=== PATIENT | female | born 1960 | race Caucasian/White ===

== ENCOUNTER 2022-10-22 15:27 | Emergency (ER) | payer MEDICARE, OTHER ==
[~2022-10-22] VITALS: Ht 180.3 cm; Wt 113.4 kg
[~2022-10-22 15:27] MED LIST: APIX5TAB PO; ATOR20TA PO; BUDE10.22 IH; DEXL60CA3 PO; DIGO125T PO; DILT120T8 PO; DOCU-141 PO; HYDR25TA4 PO; METF-440 PO; OLAN15TA3 PO; PANT40TA49 PO; QUET200T PO; SERT25TA; TRAZ-182
--- NOTE | 2022-10-22 15:52 | NUR ---
Pt states "im going to [facility]"
[2022-10-22 15:53] VITALS: BP 155/76
== END 2022-10-22 15:58 | disposition home or self-care (01) ==
LOC: ER 15:45
DX: Z53.21 Procedure and treatment not carried out due to patient leaving prior to being seen by health care provider (principal)

== ENCOUNTER 2022-11-01 20:29 | Inpatient (IN) | payer MEDICARE, OTHER ==
[~2022-11-01] VITALS: Ht 170.2 cm; Wt 99.8 kg
--- NOTE | 2022-11-01 22:24 | NUR ---
Yue mullen in [facility] - 11/01/22 at 2224 by TRACY URINE COLLECTED AND SENT TO LAB
--- NOTE | 2022-11-01 22:24 | NUR ---
COVID SWAB DONE AND SENT TO LAB
[2022-11-01 23:37] LABS: BASOPHILS % (AUTO) 0.2 % (0.0-2.0); EOSINOPHILS % (AUTO) 1.8 % (0.0-6.0); HEMATOCRIT 37 % (33-45); LYMPHOCYTES # (AUTO) 3.3 K/uL (0.8-4.8); MEAN CORPUSCULAR HGB CONC 32 g/dl (31.0-36.0); MEAN CORPUSCULAR VOLUME 89 fL (82-100); MONOCYTES # (AUTO) 0.6 K/uL (0.1-1.30); MONOCYTES % (AUTO) 5.3 % (2.0-12.0); NEUTROPHILS # (AUTO) 6.8 K/uL (1.8-8.9); NEUTROPHILS % (AUTO) 62.7 % (43.0-81.0); PLATELET COUNT (AUTO) 281 K/uL (150-450); RED BLOOD CELL COUNT(AUTO) 4.17 MIL/uL (4.0-5.2); WHITE BLOOD COUNT (AUTO) 10.9 K/uL (4.3-11.0)
[2022-11-01 23:56] LABS: CALCIUM, SERUM 8.9 mg/dL (8.5-10.1); CARBON DIOXIDE 26 mmol/L (21-32); CHLORIDE 103 mmol/L (98-107); CREATININE 0.6 mg/dL (0.6-1.3); GLUCOSE 191 mg/dL (74-106); POTASSIUM 3.4 mmol/L (3.5-5.1); SODIUM SERUM 138 mmol/L (136-145); UREA NITROGEN, BLOOD 9 mg/dL (7-18)
[2022-11-02 00:07] LABS: ALANINE AMINOTRANSFERASE 24 U/L (12-78); ALBUMIN 3.5 g/dL (3.4-5.0); ALCOHOL, BLOOD < 3 mg/dL (0-0); ALKALINE PHOSPHATASE 126 U/L (46-116); ASPARTATE AMINOTRANSFERASE 12 U/L (15-37); BILIRUBIN,DIRECT 0.1 mg/dL (0.0-0.2); BILIRUBIN,TOTAL 0.3 mg/dL (0.2-1.0); TOTAL PROTEIN, SERUM 7.1 g/dL (6.4-8.2)
--- NOTE | 2022-11-02 00:55 | NUR ---
REPORT GIVEN TO RN
[2022-11-02 01:53] VITALS: BP 126/55
[2022-11-02] MEDS ORDERED: BLOOD SUGAR DIAGNOSTIC 1 EACH STRIP IN ONE (02:00)
[2022-11-02] MEDS ORDERED: TEMAZEPAM 7.5 MG CAPSULE PO PRN (02:00)
[2022-11-02] MEDS ORDERED: MAGNESIUM HYDROXIDE 30 ML UDC PO PRN (02:00)
[2022-11-02] MEDS ORDERED: MAG HYDROX/AL HYDROX/SIMETH 30 ML UDC PO PRN (02:00)
--- NOTE | 2022-11-02 02:30 | NUR ---
SUPERVISOR [employer]REWORKS ASSEMBLY NOTE - ADMITTED 62 Y/O FEMALE FROM [facility] ER TO GPS UNIT. PATIENT IS ON 5150 HOLD DUE TO DTS. PER 5150 HOLD, PATIENT'S MOTHER HAS CONSERVATORSHIP. PER MOTHER, CLIENT NEEDS TO BE HOSPITALIZED CLIENT IS MAKING SUICIDAL STATEMENTS AND IS ASKING MOTHER TO MAKE MORGUE FOR HER. ON EVALUATION, CLIENT PRESENTED WITH SEVERE ACTIVE AND ACUTE MOOD DISREGULATION. SHE WAS AGITATED AND STATED THAT SHE HAS NOT SLEPT IN SEVERAL DAYS. MOREOVER, SHE PRESENTED WITH POOR IMPULSE CONTROL, UNPREDICTABLE BEHAVIOR, POOR INSIGHT AND POOR JUDGEMENT. MOTHER HAS BEEN CALLING SEVERAL TIMES DURING THE LAST WEEKS MOTHER IS CONCERNED THAT CLIENT IS GOING TO HURT HERSELF. UPON FACE TO FACE ASSESSMENT, PATIENT IS A & O X 1-2, CONFUSED, DISORGANIZED, POOR IMPULSE CONTROL, EASILY ANXIOUS, RESTLESS, UNPREDICTABLE BEHAVIOR, UNCOOPERATIVE, LABILE, NEEDY. PATIENT DENIES SUICIDAL IDEATIONS AT THIS TIME AND STATED," I DON'T REMEMBER EXACTLY WHY I AM HERE." PATIENT IS AMBULATORY, STEADY GAIT. PAST MEDICAL HX DEPRESSION, HTN, DIABETES, BIPOLAR D/O, GERD, COPD AND SCHIZOAFFECTIVE DISORDER. PT. REFUSED SKIN ASSESSMENT X 3. ONLY ALLOWED FACE PICTURE TO BE TAKEN. PT. REFUSED TO SIGN ALL ADMISSION PAPERS AND REFUSED FLU/PNEUMOCOCCAL VACCINE. PATIENT IS UNABLE TO PROVIDE INFORMATION OF COVID VACCINE DUE TO CONFUSION. WILL ENDORSE TO AM RN TO FOLLOW UP WITH PT'S MOTHER IN AM VIA PHONE. DR. URIBE AND DR. LANTIGUA NOTIFIED ABOUT PT'S ADMISSION IN GPS UNIT. CONTINENT/BRP. PT'S RIGHTS HANDBOOK PROVIDED TO THE PATIENT. BS IS 253 MG/DL UPON ADMISSION. ORIENTED THE PT. TO THE UNIT AND STAFF. SNACK OFFERED AND TOLERATED WELL. SAFETY MEASURES IN PLACE. WILL CONTINUE TO MONITOR Q 15 MIN FOR SAFETY AND BEHAVIOR.
--- NOTE | 2022-11-02 04:46 | NUR ---
URINE SPECIMEN COLLECTED AND WILL BE SENT TO LAB.
--- NOTE | 2022-11-02 05:12 | NUR ---
DR. LANTIGUA NOTIFIED REGARDING NEW ADMISSION AND MEDICATIONS TO BE RECONCILED.
[2022-11-02] MEDS ORDERED: DEXTROSE 50%-WATER 50 ML DISP.SYRIN IV PRN (05:30)
--- NOTE | 2022-11-02 07:21 | NUR ---
CALLED PATIENT'S MOTHER ANN ZULUAGA AND LEFT A VOICEMAIL AT [phone] REGARDING PATIENT'S ADMISSION AT [facility] GPS UNIT.
[2022-11-02 08:00] VITALS: BP 125/59
[2022-11-02] MEDS ORDERED: HYDR-4076 PO (08:22)
[2022-11-02] MEDS ORDERED: METO50CA PO (08:22)
[2022-11-02] MEDS ORDERED: METO25TA4 PO (08:23)
[2022-11-02] MEDS: BLOOD SUGAR DIAGNOSTIC 1 EACH STRIP IN SCH ×4 (08:29→22:00)
[2022-11-02 08:41] LABS: BILIRUBIN,URINE NEGATIVE (NEGATIVE); COLOR,URINE YELLOW (YELLOW); LEUKOCYTE ESTERASE ,URINE NEGATIVE (NEGATIVE); NITRITE, URINE NEGATIVE (NEGATIVE); PROTEIN,URINE NEGATIVE (NEGATIVE); UGLUCOSE NEGATIVE (NEGATIVE); UROBILINOGEN,URINE 0.2 EU/dL (0.2)
--- NOTE | 2022-11-02 10:25 | NUR ---
ANYI Initial Discharge Note: Patient currently resides at home located at [address] [place] [address]. Pt stated that her mother Kenzie is her conservator ([phone]). SW will contact mother to confirm and gather collateral. ANYI will work with the pt, family, and MD to help coordinate appropriate discharge.
--- NOTE | 2022-11-02 10:26 | NUR ---
ANYI Clinical Note: Pt placed on a 5150 hold for danger to herself. Pt was brought in due to making suicidal statements and has not been sleeping or eating at home. Patient currently resides at home located at [address] [place] [address]. Pt stated that her mother Kenzie is her conservator ([phone]). SW will contact mother to confirm and gather collateral.
--- NOTE | 2022-11-02 10:26 | NUR ---
Treatment Plan: Pt refused to sign treatment plan and was tearful.
[2022-11-02] MEDS: DILTIAZEM HCL CD 120 MG PO SCH (11:08)
--- NOTE | 2022-11-02 11:08 | NUR ---
RN-NOTES NOTED PATIENT ANGRY,IRRITABLE,PACING ,DEMANDING WITH LOUD VOICE. REDIRECTED AND OFFERED ATIVAN BUT PATIENT REFUSED. STATED" I DON'T NEED ANY ATIVAN". EXPLAINED RISK AND BENEFITS BUT PATIENT STILL REFUSED.OFFERED X3.
--- NOTE | 2022-11-02 11:59 | NUR ---
RN-NOTES PATIENT REFUSED LAB DRAW DESPITE FEW ATTEMPTS BY THE LAB STAFF.
--- NOTE | 2022-11-02 12:15 | NUR ---
RN-NOTES PATIENT BS WAS 203MG/DL, PATIENT REFUSED 4 UNITS OF R INSULIN. MODEL MAKER PLASTER YANELIS NOTIFIED.
--- NOTE | 2022-11-02 12:25 | NUR ---
RN-NOTES PATIENT BS WAS 203MG/DL,REFUSED 4 UNITS OF R INSULIN DESPITE EXPLANATIONS RISK AND BENEFITS. STATED" I NEVER TAKE INSULIN IN MY LIFE ,I'M ON METFORMIN". OFFERED X3.
[2022-11-02] MEDS: hydrALAZINE HCL 25 MG TABLET PO SCH ×3 (13:46→18:41)
--- NOTE | 2022-11-02 14:02 | NUR ---
ANYI Family Contact: ANYI contacted patient's mother Kenzie ([phone]) to discuss treatment and discharge plan. She stated that she is the LPS conservator for pt. She stated her minister office would know information. Terrie [phone] and they will be able to send the documents. She reported that she is unable to care for pt at home and she will need placement. Pt's mother is elderly and she is in her 80's.
--- NOTE | 2022-11-02 14:04 | NUR ---
[employer] Worker Office: ANYI contacted pt's medical malpractice paralegal office and spoke with Terrie ([phone]) who stated that they have a minute order for pt and detain and treat that she can send. She reported that the mother Kenzie is the LPS conservator, however, she stated that she is elderly and it will be difficult for mother to sign. Terrie requested if pt's claim attorney can sign, ANYI consulted with Karishma Mcgee, director and she stated that unfortunately the conservator would need to sign. ANYI notified Terrie and left her a voicemail.
--- NOTE | 2022-11-02 14:34 | NUR ---
RN-NOTES PATIENT SCREAMING AND YELLING AT THE CULINARY SPECIALIST DEMANDING A TURKEY SANDWICH WHICH IS NOT POSSIBLE DUE TO HER VEGETARIAN DIET. CULINARY SPECIALIST DID EXPLAINED AND ENCOURAGED TO HAVE OTHER SANDWICH WITH NO MEAT BUT PATIENT GETS AGITATED AND YELLING WITH THREATENING VOICE. DR. URIBE NOTIFIED WITH THE BEHAVIOR. WITH T.O ORDER OF ATIVAN 1MG IM ONE AND ZYPREXA 10MG IM ONE. NOTED AND CARRIED OUT.
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
[2022-11-02] MEDS ORDERED: LORAZEPAM INJ 2 MG/ML VIAL IM ONE (15:00)
[2022-11-02] MEDS ORDERED: OLANZAPINE 10 MG VIAL IM ONE (15:00)
[2022-11-02 16:00] VITALS: BP 153/93
[2022-11-02] MEDS: APIXABAN 5 MG TABLET PO SCH ×2 (17:00→18:42)
[2022-11-02] MEDS: METFORMIN 500 MG TABLET PO SCH ×2 (17:00→18:41)
--- NOTE | 2022-11-02 17:26 | NUR ---
RN-NOTES ALL 1700 PM P.O MEDICATIONS WAS NOT GIVEN DUE TO PATIENT IS TOO SEDATED WITH BREATHING EVEN AND NONLABORED. NO ACUTE DISTRESS NOTED. Addendum: 11/02/22 at 1840 by KATARINA MACHUCA RN PATIENT WAS AWAKE AND TOOK ALL 1700 MEDICATIONS.
--- NOTE | 2022-11-02 18:30 | NUR ---
RN-NOTES SUPERVISOR ELECTRONICS ASSEMBLY VERIFIED WITH THE PATIENT'S MOTHER IF PATIENT IS VEGETARIAN,PER ANN ZULUAGA PATIENT CAN EAT EEGS AND MEAT BUT SMALL PORTION. SUPERVISOR ELECTRONICS ASSEMBLY DID CHANGE PATIENT'S DIET TO REGULAR CARDIAC DIET.
[2022-11-02 20:30] VITALS: BP 150/87
[2022-11-02] MEDS ORDERED: QUETIAPINE FUMARATE 100 MG TABLET PO SCH (22:00)
[2022-11-02] MEDS: ATORVASTATIN 10 MG TABLET PO SCH (22:13)
[2022-11-02] MEDS: ACETAMINOPHEN 325 MG TABLET PO PRN (22:16)
--- NOTE | 2022-11-02 23:08 | NUR ---
Blood sugar 156
[2022-11-02] MEDS: INSULIN REGULAR, HUMAN 100 UNIT/ML 3 ML VIAL SQ PRN (23:18)
[2022-11-02] MEDS: LORAZEPAM 0.5 MG TABLET PO PRN (23:44)
--- NOTE | 2022-11-03 07:15 | NUR ---
RN OPENING NOTE PATIENT ALERT, ORIENTED x 3, AWAKE, AMBULATORY, VERY WELL AWARE ABOUT HER MEDICATION, ASKING QUESTIONS. SAFETY MEASURES IMPLEMENTED, WILL CONTINUE TO MONITOR.
[2022-11-03] MEDS: PANTOPRAZOLE 40 MG TABLET.DR PO SCH (07:47)
[2022-11-03 08:00] VITALS: BP 139/79
--- NOTE | 2022-11-03 08:00 | NUR ---
PATIENTS BS LEVEL 192, PT REFUSED TO GET INSULIN. WILL MONITOR.
[2022-11-03] MEDS: BLOOD SUGAR DIAGNOSTIC 1 EACH STRIP IN SCH ×4 (08:05→21:58)
[2022-11-03] MEDS: DILTIAZEM HCL CD 120 MG PO SCH (09:51)
[2022-11-03] MEDS: METFORMIN 500 MG TABLET PO SCH ×2 (09:52→17:22)
[2022-11-03] MEDS: hydrALAZINE HCL 25 MG TABLET PO SCH ×3 (09:52→17:24)
[2022-11-03] MEDS: METOPROLOL SUCCINATE 25 MG TAB.SR.24H PO SCH (09:53)
[2022-11-03] MEDS: APIXABAN 5 MG TABLET PO SCH ×2 (09:55→17:25)
[2022-11-03 10:00] VITALS: BP 139/79
[2022-11-03] MEDS ORDERED: QUETIAPINE FUMARATE 25 MG TABLET PO SCH (12:00)
[2022-11-03] MEDS: DIGOXIN 0.125 MG TABLET PO SCH (12:29)
--- NOTE | 2022-11-03 12:55 | NUR ---
PT BS LEVEL 196, REFUSED INSULIN. WILL CONTINUE TO MONITOR.
[2022-11-03 16:00] VITALS: BP 150/57
--- NOTE | 2022-11-03 18:44 | NUR ---
RN CLOSING NOTE. PT IS IN ROOM, CALM, COOPERATIVE. ALL MEDS GIVEN, ALL NEEDS ATTENDED. WILL ENDORSE TO THE DIRECTOR INFORMATION SECURITY.
[2022-11-03] MEDS: ATORVASTATIN 10 MG TABLET PO SCH (21:36)
[2022-11-03 22:00] VITALS: BP 150/87
[2022-11-03] MEDS ORDERED: QUETIAPINE FUMARATE 100 MG TABLET PO SCH ×2 (22:00)
[2022-11-04] MEDS: LORAZEPAM 0.5 MG TABLET PO PRN (04:15)
--- NOTE | 2022-11-04 04:19 | NUR ---
RN NOTES; ATIVAN 0.5MG BARCODE WON'T SCAN,I DO IT MANUALLY,CHARGE NURSE ITZ WAS IN MY SIDE.
[2022-11-04] MEDS: BLOOD SUGAR DIAGNOSTIC 1 EACH STRIP IN SCH ×4 (07:30→21:30)
--- NOTE | 2022-11-04 07:34 | NUR ---
GPS/RN PT REFUSED ACCUCHECK OFFERED X3
[2022-11-04 08:00] VITALS: BP 111/75
[2022-11-04] MEDS: METFORMIN 500 MG TABLET PO SCH ×2 (08:48→17:50)
[2022-11-04] MEDS: PANTOPRAZOLE 40 MG TABLET.DR PO SCH (08:49)
[2022-11-04] MEDS: APIXABAN 5 MG TABLET PO SCH ×2 (08:49→17:50)
[2022-11-04] MEDS: hydrALAZINE HCL 25 MG TABLET PO SCH ×3 (08:50→17:50)
[2022-11-04] MEDS: DILTIAZEM HCL CD 120 MG PO SCH (08:50)
[2022-11-04] MEDS: METOPROLOL SUCCINATE 25 MG TAB.SR.24H PO SCH (09:00)
[2022-11-04 10:00] VITALS: BP 111/75
--- NOTE | 2022-11-04 10:54 | NUR ---
ANYI SNF Referral: [phone][facility] ANYI sent H & P, progress notes, and medication list.
--- NOTE | 2022-11-04 11:04 | NUR ---
LPS Conservatorship: ANYI and Karishma Mcgee, director reviewed patient's LPS conservatorship minute order document. It appears that the power 12 does not allow to detain and treat in the psych unit due to 7 & 8 gunderson not granted. Therefore, pt will remain 5150/5250. ANYI informed treatment team and Dr. Amato. Addendum: 11/04/22 at 1111 by ANYI BENSON ANYI placed it in the chart.
--- NOTE | 2022-11-04 13:00 | NUR ---
GPS/MARNIE ACCUCHECK WITH VR=640 NO INSULIN COVERAGE. PT SELECTIVE WITH MEDS. REFUSED HYDRALAZINE PO
[2022-11-04] MEDS: DIGOXIN 0.125 MG TABLET PO SCH (14:21)
[2022-11-04 16:00] VITALS: BP 136/66
[2022-11-04] MEDS: DOCUSATE SODIUM 100 MG CAPSULE PO PRN (17:50)
--- NOTE | 2022-11-04 19:30 | NUR ---
GPS RN NOTE, RECEIVED PATIENT AWAKE AND IN BED, NO S/S OR COMPLAINTS OF PAIN AT THIS TIME. PATIENT IS DISPLAYING NO S/S OF APPARENT DISTRESS AT THIS TIME. PATIENT BREATHING IS UNLABORED WITH EQUAL RISE AND FALL OF THE CHEST. PATIENT IS ALERT AND ORIENTED X 2 ON ROOM AIR WITH A SPO2 98%. PATIENT IS SELECTIVE WITH MEDICATIONS, MANIPULATIVE, HYPERVERBAL, ANXIOUS, PARANOID, AND COOPERATIVE. PATIENT DENIES SUICIDAL AND HOMICIDAL IDEATIONS AT THIS TIME. PATIENT ASSISTED WITH TURNING AND REPOSITIONING Q2HR AND PRN FOR COMFORT AND CIRCULATION. PATIENT HAS NO NEEDS AT THIS TIME. PATIENT EDUCATED ON THE USE OF THE CALL JUAREZ. PATIENT BED SIDE RAILS UP X 2 FOR SAFETY. PATIENT BED IS LOCKED AND LOW. WILL CONTINUE TO MONITOR THIS PATIENT Q15 MINUTES WITH THE HELP OF STAFF TO MAINTAIN SAFETY.
[2022-11-04 20:42] VITALS: BP 130/59
[2022-11-04] MEDS: ATORVASTATIN 10 MG TABLET PO SCH (21:25)
[2022-11-04] MEDS: QUETIAPINE FUMARATE 100 MG TABLET PO SCH (21:25)
--- NOTE | 2022-11-04 21:30 | NUR ---
GPS RN NOTE, PATIENT REFUSED TO HAVE A ACCU-CHECK PERFORMED. OFFERED THREE TIMES AND STILL PATIENT REFUSED STATING, " NO I DON'T WANT TO CHECK MY BLOOD SUGAR, I JUST WANT TO SLEEP ". EDUCATED PATIENT ON THE RISKS AND BENEFITS OF MAINTAINING BLOOD SUGAR. WILL CONTINUE TO MONITOR THIS PATIENT WITH THE HELP OF STAFF.
[2022-11-05 08:00] VITALS: BP 134/56
--- NOTE | 2022-11-05 08:10 | NUR ---
GPS/RN ACCUCHECK WITH WU=101. PT REFUSED INSULIN COVERAGE OFFERED X3
[2022-11-05] MEDS: BLOOD SUGAR DIAGNOSTIC 1 EACH STRIP IN SCH ×4 (08:13→22:00)
[2022-11-05] MEDS: METFORMIN 500 MG TABLET PO SCH ×2 (08:15→17:34)
[2022-11-05] MEDS: APIXABAN 5 MG TABLET PO SCH ×2 (08:16→17:34)
[2022-11-05] MEDS: PANTOPRAZOLE 40 MG TABLET.DR PO SCH (08:16)
[2022-11-05] MEDS: DILTIAZEM HCL CD 120 MG PO SCH (08:17)
[2022-11-05] MEDS: hydrALAZINE HCL 25 MG TABLET PO SCH ×3 (08:17→17:34)
[2022-11-05] MEDS: METOPROLOL SUCCINATE 25 MG TAB.SR.24H PO SCH (08:21)
--- NOTE | 2022-11-05 12:17 | NUR ---
GPS/RN ACCUCHECK WITH HP=058. PT REFUSED INSULIN COVERAGE OFFERED X3
[2022-11-05] MEDS: DIGOXIN 0.125 MG TABLET PO SCH (12:36)
[2022-11-05 16:00] VITALS: BP 114/52
--- NOTE | 2022-11-05 19:25 | NUR ---
GPS RN NOTES RECEIVED LAYING ON HER BED INSIDE THE ROOM,SLEEPING,AROUSABLE TO VERBAL STIMULI,PER REPORT,A/O X1-2,CONFUSED,UNCOOPERATIVE AT TIMES,DISORGANIZED,AMBULATE WITH STEADY GAIT,DEMANDING AT TIMES.WILL CONTINUE TO MONITOR BEHAVIOR AND MANAGE ACCORDINGLY.
[2022-11-05 20:00] VITALS: BP 128/61
[2022-11-05 20:39] VITALS: BP 128/61
[2022-11-05] MEDS: QUETIAPINE FUMARATE 100 MG TABLET PO SCH (21:28)
[2022-11-05] MEDS: ATORVASTATIN 10 MG TABLET PO SCH (21:28)
--- NOTE | 2022-11-05 21:45 | NUR ---
GPS RN NOTES REFUSED BLOOD SUGAR CHECK FOR 2200
[2022-11-05] MEDS: LORAZEPAM 0.5 MG TABLET PO PRN (23:24)
--- NOTE | 2022-11-05 23:24 | NUR ---
GPS RN NOTES FEELING ANXIOUS,ATIVAN 0.5MG PO GIVEN PER PATIENT REQUEST
[2022-11-06] MEDS: BLOOD SUGAR DIAGNOSTIC 1 EACH STRIP IN SCH ×3 (07:30→12:00)
[2022-11-06 08:00] VITALS: BP 142/65
--- NOTE | 2022-11-06 08:00 | NUR ---
GPS RN NOTE RECEIVED PATIENT SLEEPING IN BED, NO S/S OR COMPLAINTS OF PAIN AT THIS TIME. PATIENT IS DISPLAYING NO S/S OF APPARENT DISTRESS AT THIS TIME. PATIENT BREATHING IS UNLABORED WITH EQUAL RISE AND FALL OF THE CHEST. PATIENT IS ALERT AND ORIENTED X 2 ENDORSED ON ROOM AIR TOLERATING WELL. PATIENT BED SIDE RAILS UP X 2 FOR SAFETY. PATIENT BED IS LOCKED AND LOW. WILL CONTINUE TO MONITOR THIS PATIENT Q15 MINUTES WITH THE HELP OF STAFF TO MAINTAIN SAFETY. WILL MONITOR.
[2022-11-06] MEDS: PANTOPRAZOLE 40 MG TABLET.DR PO SCH (08:32)
[2022-11-06] MEDS: DOCUSATE SODIUM 100 MG CAPSULE PO PRN ×2 (08:42→09:35)
[2022-11-06] MEDS: METFORMIN 500 MG TABLET PO SCH ×2 (08:42→16:28)
[2022-11-06] MEDS: hydrALAZINE HCL 25 MG TABLET PO SCH ×3 (08:42→16:28)
[2022-11-06] MEDS: DILTIAZEM HCL CD 120 MG PO SCH (08:43)
[2022-11-06] MEDS: METOPROLOL SUCCINATE 25 MG TAB.SR.24H PO SCH ×2 (08:44→09:00)
[2022-11-06] MEDS: APIXABAN 5 MG TABLET PO SCH ×2 (09:00→16:29)
--- NOTE | 2022-11-06 10:10 | NUR ---
gps rn notes Patient refused to check her blood sugar, refused metoprolol and colace. Patient states, My blood pressure is okay, I will get my blood sugar test this afternoon. Explained risk, approached several times. will monitor.
[2022-11-06] MEDS: DIGOXIN 0.125 MG TABLET PO SCH (12:43)
--- NOTE | 2022-11-06 12:45 | NUR ---
GPS RN NOTE PATIENT REFUSED ACCU-CHECK .OFFERED THREE TIMES AND STILL PATIENT REFUSED STATING, " YOU ALREADY ASKED ME 100X I DON'T WANT YOU TO CHECK MY BLOOD SUGAR ". EDUCATED PATIENT ON THE RISKS AND BENEFITS OF MAINTAINING BLOOD SUGAR. NOTIFIED ALEXIS TOTH WITH ORDER TO DC ACCUCHECK. WILL MONITOR
[2022-11-06 16:00] VITALS: BP 132/57
--- NOTE | 2022-11-06 18:52 | NUR ---
GPS RN NOTE PATIENT AWAKE AND IN BED, NO S/S OR COMPLAINTS OF PAIN AT THIS TIME. PATIENT IS DISPLAYING NO S/S OF APPARENT DISTRESS AT THIS TIME. PATIENT BREATHING IS UNLABORED WITH EQUAL RISE AND FALL OF THE CHEST, MANIPULATIVE, HYPERVERBAL, ANXIOUS, PARANOID, AND COOPERATIVE. PATIENT DENIES SUICIDAL AND HOMICIDAL IDEATIONS AT THIS TIME. PATIENT KEPT ON WALKING IN THE HALLWAY, ASKING IRRELEVANT QUESTIONS. PATIENT HAS NO NEEDS AT THIS TIME. PATIENT EDUCATED ON THE USE OF THE CALL JUAREZ. PATIENT BED SIDE RAILS UP X 2 FOR SAFETY. PATIENT BED IS LOCKED AND LOW. WILL CONTINUE TO MONITOR THIS PATIENT Q15 MINUTES WITH THE HELP OF STAFF TO MAINTAIN SAFETY.
--- NOTE | 2022-11-06 20:00 | NUR ---
A/OX4, IRRITABLE, MANIPULATIVE, DISORGANIZED, GUARDED. MED COMPLIANT. WILL CONTINUE TO MONITOR FOR SAFETY AND BEHAVIOR.
[2022-11-06 20:25] VITALS: BP 120/52
--- NOTE | 2022-11-06 20:30 | NUR ---
PATIENT REFUSED WEEKLY SKIN ASSESSMENT. WILL CONTINUE TO MONITOR.
[2022-11-06] MEDS: LORAZEPAM 0.5 MG TABLET PO PRN (21:33)
[2022-11-06] MEDS: QUETIAPINE FUMARATE 100 MG TABLET PO SCH (21:34)
[2022-11-06] MEDS: ATORVASTATIN 10 MG TABLET PO SCH (21:34)
[2022-11-07 08:00] VITALS: BP 139/71
[2022-11-07] MEDS: PANTOPRAZOLE 40 MG TABLET.DR PO SCH (08:04)
[2022-11-07] MEDS: DILTIAZEM HCL CD 120 MG PO SCH (08:21)
[2022-11-07] MEDS: METFORMIN 500 MG TABLET PO SCH ×2 (08:22→16:51)
[2022-11-07] MEDS: hydrALAZINE HCL 25 MG TABLET PO SCH ×4 (08:22→17:27)
[2022-11-07] MEDS: METOPROLOL SUCCINATE 25 MG TAB.SR.24H PO SCH ×2 (08:22→09:00)
[2022-11-07] MEDS: APIXABAN 5 MG TABLET PO SCH ×2 (08:26→16:57)
--- NOTE | 2022-11-07 10:26 | NUR ---
Court Notification: SW contacted pt's mother Kenzie ([phone]) to notify of 0847 hearing.
--- NOTE | 2022-11-07 10:27 | NUR ---
Court Hearing: Patient's court hearing for 9660 was today and it was upheld for GD.
[2022-11-07] MEDS: DIGOXIN 0.125 MG TABLET PO SCH (13:41)
[2022-11-07 16:00] VITALS: BP 134/57
[2022-11-07] MEDS: ATORVASTATIN 10 MG TABLET PO SCH (21:03)
[2022-11-07] MEDS: QUETIAPINE FUMARATE 100 MG TABLET PO SCH (21:04)
[2022-11-07] MEDS: LORAZEPAM 0.5 MG TABLET PO PRN (23:20)
--- NOTE | 2022-11-07 23:24 | NUR ---
ANXIETY Patient feels anxious, request Ativan. Denies sob, in RA. Given PO Ativan.
--- NOTE | 2022-11-08 06:29 | NUR ---
END OF SHIFT REPORT Patient in bed, sleeping arouses easily. Hours of sleep 8. Facing hallway when awake, calm down with Ativan PO, denies SOB. Plan for continue inpatient [facility] hospitalization, Behavior management per Psychiatry. Will endorse to oncoming RN.
[2022-11-08 08:00] VITALS: BP 137/70
[2022-11-08] MEDS: PANTOPRAZOLE 40 MG TABLET.DR PO SCH (08:03)
[2022-11-08] MEDS: DILTIAZEM HCL CD 120 MG PO SCH (08:35)
[2022-11-08] MEDS: METFORMIN 500 MG TABLET PO SCH ×2 (08:36→17:06)
[2022-11-08] MEDS: hydrALAZINE HCL 25 MG TABLET PO SCH ×3 (08:36→17:07)
[2022-11-08] MEDS: METOPROLOL SUCCINATE 25 MG TAB.SR.24H PO SCH (08:36)
[2022-11-08] MEDS: APIXABAN 5 MG TABLET PO SCH ×2 (08:38→17:08)
--- NOTE | 2022-11-08 11:26 | NUR ---
ANYI Family Contact: SW contacted patient's mother Kenzie ([phone]) and discussed [facility] and mother was agreeable of this.
[2022-11-08] MEDS: DIGOXIN 0.125 MG TABLET PO SCH (12:20)
[2022-11-08] MEDS: LORAZEPAM 0.5 MG TABLET PO PRN (12:20)
[2022-11-08] MEDS ORDERED: OLANZAPINE 10 MG VIAL IM STA (14:48)
--- NOTE | 2022-11-08 14:56 | NUR ---
RN NOTES PATIENT'S BEHAVIOR IS UNUSUAL, PASSING THE [address] AND MALE PT'S ROOM. INFORMED DR URIBE. CHARGE NURSE BRYANNA INFORMED AND CHARGE NURSE RECEIVED THE ORDER: OLANZAPINE 10MG IM STAT ONE DOSSE ONLY. ORDERS NOTED AND CARRIED OUT. @7216 PT RECEIVED THE IM INJECTION OLANZAPINE 10MG. PT WAS INFORMED AND CALMLY PARTICIPATED.
[2022-11-08 16:28] VITALS: BP 144/76
--- NOTE | 2022-11-08 19:30 | NUR ---
RN NOTES RECEIVED PATIENT AWAKE IN BED. PATIENT IS A/O TIMES 3 . ABLE TO MAKE NEEDS KNOWN. NO PAIN NOTED. NO SOB NOTED. NO DISTRESS NOTED. COOPERATIVE AT THIS TIME. ALL NEEDS ATTENDED. ALL SAFETY MEASURES IN PLACE. BED LOCKED IN THE LOWEST POSITION. SIDE RAILS UP TIMES 2. TABLE IN EASY REACH. WILL CONTINUE TO MONITOR CLOSELY.
[2022-11-08] MEDS: QUETIAPINE FUMARATE 100 MG TABLET PO SCH (21:19)
[2022-11-08] MEDS: ATORVASTATIN 10 MG TABLET PO SCH (21:19)
--- NOTE | 2022-11-09 06:42 | NUR ---
RN CLOSING NOTES PATIENT SLEEPS IN BED. OPENS HER EYES UPON CALLING HER NAME.PATIENT IS A/O TIMES 3 . ABLE TO MAKE NEEDS KNOWN. NO PAIN NOTED. NO SOB NOTED. NO DISTRESS NOTED. COOPERATIVE AT THIS TIME. ALL DUE MEDS GIVEN ORDERED.ALL NEEDS ATTENDED. ALL SAFETY MEASURES IN PLACE. BED LOCKED IN THE LOWEST POSITION. SIDE RAILS UP TIMES 2. TABLE IN EASY REACH. WILL ENDORSE FOR HELGA.
[2022-11-09 08:00] VITALS: BP 137/66
[2022-11-09] MEDS: LORAZEPAM 0.5 MG TABLET PO PRN ×3 (09:24→20:51)
[2022-11-09] MEDS: DILTIAZEM HCL CD 120 MG PO SCH (09:25)
[2022-11-09] MEDS: METFORMIN 500 MG TABLET PO SCH ×2 (09:25→16:22)
[2022-11-09] MEDS: PANTOPRAZOLE 40 MG TABLET.DR PO SCH (09:27)
[2022-11-09] MEDS: hydrALAZINE HCL 25 MG TABLET PO SCH ×3 (09:27→16:22)
[2022-11-09] MEDS: METOPROLOL SUCCINATE 25 MG TAB.SR.24H PO SCH (09:28)
[2022-11-09] MEDS: APIXABAN 5 MG TABLET PO SCH ×2 (09:30→16:33)
[2022-11-09] MEDS: ACETAMINOPHEN 325 MG TABLET PO PRN (12:40)
[2022-11-09] MEDS: DIGOXIN 0.125 MG TABLET PO SCH (13:28)
[2022-11-09] MEDS: INSULIN REGULAR, HUMAN 100 UNIT/ML 3 ML VIAL SQ PRN (13:31)
--- NOTE | 2022-11-09 13:33 | NUR ---
RN NOTES RECEIVED PATIENT RESTING IN BED EASY TO AROUSE, SOON AFTER PT UP AND AMBULATING IN HALLWAY DEMANDING FRUIT PLATES AND MEDICATIONS, PATIENT IS A/O TIMES 3 . NO DISTRESS NO SOB NOTED, ABLE TO MAKE NEEDS KNOWN. NO PAIN NOTED.NO DISTRESS NOTED. COOPERATIVE AT THIS TIME & EDUCATED ON REASONING OF MEDICATIONS, ALL DUE MEDS GIVEN ORDERED.ALL NEEDS ATTENDED IN A TIMELY MANNER, BS READING IS AT 152 REFUSED THE SLIDING SCALE ORDER OF INSULIN TO BE GIVEN SUB Q AT THIS TIME, ALL SAFETY MEASURES IN PLACE. BED LOCKED IN THE LOWEST POSITION. SIDE RAILS UP TIMES 2. TABLE IN EASY REACH. PT COLORING AT BED SIDE WITH COLOR CRAYONS AND COOPERATIVE AT THIS TIME.
[2022-11-09 16:00] VITALS: BP 132/69
[2022-11-09 20:00] VITALS: BP_SYST 145; BP_DIAS 58; BP_DIAS 68
[2022-11-09 20:28] VITALS: BP 145/68
--- NOTE | 2022-11-09 20:30 | NUR ---
Dr. Mcdowell texted re: Pt. wants Toprol XL changed to night dose. Said ok and increased Seroquel to 800mg. Pt. was very upset that BP was elevated. Repeat showed SBP at 138/51 vs earlier 150's range. Pt. was loud and belligerent in solitario because she couldnt have dose of ToproL XL. Suggested Ativan to help relieve anxiety until MD responded. Given .Pt. back to room lying down in dark with door closed.
[2022-11-09 20:40] VITALS: BP 138/51
[2022-11-09] MEDS: ATORVASTATIN 10 MG TABLET PO SCH (20:51)
[2022-11-09] MEDS: QUETIAPINE FUMARATE 100 MG TABLET PO SCH (22:25)
--- NOTE | 2022-11-10 04:00 | NUR ---
Bed rounding noted pt. sleeping sound on right side. Bed in low position.
--- NOTE | 2022-11-10 06:20 | NUR ---
Pt. up ambulating through halls. Asked if she was okay and she replied "don't ask me that, I get nervous." Steady gait. Voiced no concerns. Back to bed. No acute distress.
--- NOTE | 2022-11-10 07:27 | NUR ---
Endorsed injury free to oncoming day shift DANNY YEH.
[2022-11-10 08:00] VITALS: BP 136/67
--- NOTE | 2022-11-10 08:00 | NUR ---
GPS RN OPENING NOTE (DAYSHIFT) Received patient in bed, awake, alert and oriented x 2-3 with some confusion. Continues to be labile and needy, but cooperative with treatment and medications. Safety precautions maintained. Will continue to monitor and care for patient per MD POC.
[2022-11-10] MEDS: METOPROLOL SUCCINATE 25 MG TAB.SR.24H PO SCH (09:00)
[2022-11-10] MEDS: PANTOPRAZOLE 40 MG TABLET.DR PO SCH (10:22)
[2022-11-10] MEDS: hydrALAZINE HCL 25 MG TABLET PO SCH ×3 (10:23→17:17)
[2022-11-10] MEDS: DILTIAZEM HCL CD 120 MG PO SCH (10:24)
[2022-11-10] MEDS: APIXABAN 5 MG TABLET PO SCH ×2 (10:25→17:19)
[2022-11-10] MEDS: METFORMIN 500 MG TABLET PO SCH ×2 (10:26→17:19)
[2022-11-10] MEDS: DIGOXIN 0.125 MG TABLET PO SCH (13:27)
[2022-11-10 16:00] VITALS: BP 128/57
[2022-11-10] MEDS: INSULIN REGULAR, HUMAN 100 UNIT/ML 3 ML VIAL SQ PRN (17:11)
--- NOTE | 2022-11-10 19:07 | NUR ---
GPS RN CLOSING NOTE (DAYSHIFT) PATIENT IS A/O TIMES 3 . ABLE TO MAKE NEEDS KNOWN. DEMANDING AND CONTRDICTATORY AT TIMES. NO PAIN NOTED. NO SOB NOTED. NO DISTRESS NOTED. COOPERATIVE THROUGHOUT SHIFT. ALL DUE MEDS GIVEN ORDERED.ALL NEEDS ATTENDED. ALL SAFETY MEASURES IN PLACE. BED LOCKED IN THE LOWEST POSITION. SIDE RAILS UP TIMES 2. TABLE IN EASY REACH. WILL ENDORSE TO MENHADEN VESSEL PILOT RN FOR HELGA. Addendum: 11/10/22 at 1916 by RUBA ARRAIGA RN PATIENT REFUSING AM DOSE OF TOPROL XL. INFORMED HOSPITALIST, DR. HALL. NO NEW ORDERS.
--- NOTE | 2022-11-10 20:30 | NUR ---
GPS RN OPENING NOTE RECEIVED PATIENT LYING DOWN IN BED, AWAKE; A/O X 1-2; AMBULATORY; STABLE ON ROOM AIR, BREATHING EVENLY AND NO RESPIRATORY DISTRESS NOTED; NO COMPLAINTS OF PAIN AND DISCOMFORT AT THIS TIME; SAFETY MEASURES IMPLEMENTED, BED IN LOW AND LOCKED POSITION, SIDE RAILS UP X 2, CALL LIGHT WITHIN REACH; WILL CONTINUE TO MONITOR EVERY 15 MINS WITH THE HELP OF STAFF TO MAINTAIN SAFETY THROUGHOUT SHIFT
[2022-11-10] MEDS: QUETIAPINE FUMARATE 100 MG TABLET PO SCH (21:43)
[2022-11-10] MEDS: ATORVASTATIN 10 MG TABLET PO SCH (21:43)
[2022-11-10] MEDS: LORAZEPAM 0.5 MG TABLET PO PRN (23:13)
--- NOTE | 2022-11-10 23:30 | NUR ---
GPS RN NOTE PATIENT WAS AGREEABLE TO TAKING ALL HER MEDICATIONS. HOWEVER, PATIENT WAS NOTED TO BE SHOUTING TOWARD STAFF BEING AND DEMANDING. AT AROUND 2300H, PATIENT INSISTED ON TAKING ATIVAN. ADMINISTERED ATIVAN PRN ORDERED; PATIENT IS NOW COMFORTABLY SLEEPING IN BED; WILL CONTINUE TO MONITOR THROUGHOUT SHIFT
--- NOTE | 2022-11-11 06:20 | NUR ---
GPS RN NOTE PATIENT WAS ABLE TO SLEEP COMFORTABLY DURING THE NIGHT; NO S/S AND COMPLAINTS OF PAIN AND DISCOMFORT AT THIS TIME; NO DISTRESS NOTED; MEDICALLY STABLE; WILL ENDORSE TO AM NURSE FOR HELGA.
[2022-11-11 08:00] VITALS: BP 144/62
--- NOTE | 2022-11-11 08:00 | NUR ---
GPS RN NOTE PATIENT AWAKE IN BED, NO S/S OR COMPLAINTS OF PAIN AT THIS TIME. PATIENT IS DISPLAYING NO S/S OF APPARENT DISTRESS AT THIS TIME. PATIENT BREATHING IS UNLABORED WITH EQUAL RISE AND FALL OF THE CHEST, PATIENT KEPT ON WALKING IN THE HALLWAY, WITH COMPLAINS OF HAVING EGG IN HER FOOD, CALLED DIETARY TPO CHANGE HER FOOD. PATIENT EDUCATED ON THE USE OF THE CALL JUAREZ. WILL CONTINUE TO MONITOR THIS PATIENT Q15 MINUTES WITH THE HELP OF STAFF TO MAINTAIN SAFETY.
[2022-11-11] MEDS: PANTOPRAZOLE 40 MG TABLET.DR PO SCH (08:20)
[2022-11-11] MEDS: METFORMIN 500 MG TABLET PO SCH ×2 (08:22→17:30)
[2022-11-11] MEDS: hydrALAZINE HCL 25 MG TABLET PO SCH ×3 (08:23→17:30)
[2022-11-11] MEDS: DILTIAZEM HCL CD 120 MG PO SCH (08:24)
[2022-11-11] MEDS: METOPROLOL SUCCINATE 25 MG TAB.SR.24H PO SCH ×2 (08:25→09:00)
[2022-11-11] MEDS: APIXABAN 5 MG TABLET PO SCH ×2 (08:39→17:50)
[2022-11-11] MEDS: TOPIRAMATE 25 MG TABLET PO SCH ×2 (10:00→17:29)
--- NOTE | 2022-11-11 11:00 | NUR ---
RN NOTES PATIENT REFUSED METOPROLOL IN THE MORNING AND NOTED TO BE REFUSING IT FOR DAYS NOW. PATIENT STATES, " I WANT TO TAKE IT AT NIGHT TIME". NOTIFIED DR. CHANG TO CHANGE THE MEDS TO NIGHT TIME. DR. CHANG AGREED TO CHANGE TIMING. WILL MONITOR.
--- NOTE | 2022-11-11 12:00 | NUR ---
RN NOTE PATIENT REFUSED TOPIRAMITE, NOTIFIED DR. URIBE. WILL MONITOR.
[2022-11-11] MEDS: DIGOXIN 0.125 MG TABLET PO SCH (12:07)
--- NOTE | 2022-11-11 15:45 | NUR ---
SNF Referral: ANYI sent clinicals to [facility] ([phone]) for placement. ANYI sent H & P, progress notes, and medication list. Addendum: 11/11/22 at 1546 by ANYI BENSON For Anurag WHITLOCK
[2022-11-11 16:00] VITALS: BP 138/48
--- NOTE | 2022-11-11 19:00 | NUR ---
RN NOTES PATIENT KEEPS ON WALKING IN AND OUT OF HER ROOM, VERBALLY AGGRESSIVE TOWARDS STAFF. NO S/S AND COMPLAINTS OF PAIN AND DISCOMFORT AT THIS TIME; NO DISTRESS NOTED; MEDICALLY STABLE; WILL ENDORSE TO NIGHT NURSE FOR HELGA.
--- NOTE | 2022-11-11 19:10 | NUR ---
RN notes Received Pt in the bed resting comfortably. Pt is alert and orientedX2, disorganized, confused and anxious. On room air. No SOB. No S/S of distress noted. Vs is stable. Reality orientation provided. Snacks is given and provided. Safety precautions is maintained. Will continue to monitor Q 15 mins checks for safety and behavior.
[2022-11-11 20:41] VITALS: BP 144/60
[2022-11-11] MEDS: QUETIAPINE FUMARATE 100 MG TABLET PO SCH (21:26)
[2022-11-11] MEDS: METOPROLOL SUCCINATE 50 MG TAB.SR.24H PO SCH ×2 (21:27→21:35)
[2022-11-11] MEDS: ATORVASTATIN 10 MG TABLET PO SCH (21:27)
--- NOTE | 2022-11-11 21:36 | NUR ---
RN notes Open metoprolol med in front of Pt. Pt refuses metoprolol med. Pt's BP 144/66. HR 78. Explained risks and benefits. Pt keep refusing. Offered several times. Waste med in waste bin. Will continue to monitor.
[2022-11-11] MEDS: LORAZEPAM 0.5 MG TABLET PO PRN (22:30)
--- NOTE | 2022-11-11 22:33 | NUR ---
RN notes Pt is feeling anxious, restless and agitated easily. administered ativan/po as ordered. Safety precautions is maintained. Will continue to monitor.
--- NOTE | 2022-11-12 07:19 | NUR ---
BUS ATTENDANT OPENING NOTE RECEIVED PT ASLEEP IN BED, EASILY AROUSED. PT IS A/O X2 COOPERATIVE AND WANTED TO GO BACK TO SLEEP. PT ON ROOM AIR, TOLERATING WELL. NO SOB NOTED. NOT IN ANY SIGN OF RESPIRATORY DISTRESS. SAFETY MEASURES IN PLACE: BED IN LOWEST AND LOCKED POSITION, SIDE RAILS UP, BED ALARM ON, AND CALL LIGHT WITHIN EASY REACH. WILL CONTINUE TO MONITOR PT.
[2022-11-12] MEDS: METFORMIN 500 MG TABLET PO SCH ×2 (08:12→16:16)
[2022-11-12] MEDS: DOCUSATE SODIUM 100 MG CAPSULE PO PRN (08:13)
[2022-11-12] MEDS: TOPIRAMATE 25 MG TABLET PO SCH ×2 (08:13→16:14)
[2022-11-12] MEDS: PANTOPRAZOLE 40 MG TABLET.DR PO SCH (08:13)
[2022-11-12] MEDS: DILTIAZEM HCL CD 120 MG PO SCH (09:00)
[2022-11-12] MEDS: APIXABAN 5 MG TABLET PO SCH ×2 (09:58→16:16)
[2022-11-12] MEDS: hydrALAZINE HCL 25 MG TABLET PO SCH ×3 (09:59→16:16)
[2022-11-12] MEDS: DIGOXIN 0.125 MG TABLET PO SCH (12:19)
[2022-11-12 16:00] VITALS: BP 126/76
[2022-11-12 21:10] VITALS: BP 135/71
[2022-11-12] MEDS: ATORVASTATIN 10 MG TABLET PO SCH (21:51)
[2022-11-12] MEDS: QUETIAPINE FUMARATE 100 MG TABLET PO SCH (21:51)
[2022-11-12] MEDS: LORAZEPAM 0.5 MG TABLET PO PRN (21:59)
--- NOTE | 2022-11-12 21:59 | NUR ---
RN notes Pt is feeling anxious and agitated easily. Administered ativan 0.5 mg/po/prn as ordered. safety precautions is maintained. will continue to monitor.
[2022-11-13 08:00] VITALS: BP 120/60
[2022-11-13] MEDS: PANTOPRAZOLE 40 MG TABLET.DR PO SCH (08:12)
[2022-11-13] MEDS: TOPIRAMATE 25 MG TABLET PO SCH (08:22)
[2022-11-13] MEDS: METFORMIN 500 MG TABLET PO SCH ×2 (08:22→16:34)
[2022-11-13] MEDS: APIXABAN 5 MG TABLET PO SCH ×2 (08:24→16:35)
[2022-11-13] MEDS: hydrALAZINE HCL 25 MG TABLET PO SCH ×3 (08:26→16:34)
[2022-11-13] MEDS: DILTIAZEM HCL CD 120 MG PO SCH (08:26)
[2022-11-13] MEDS: DIGOXIN 0.125 MG TABLET PO SCH (12:39)
--- NOTE | 2022-11-13 18:27 | NUR ---
RN- CLOSING NOTES PATIENT AWAKE IN BED, COLORING. A/O X2. PT. IS GUARDED, ANXIOUS, NEEDY, AND SUSPICIOUS. PATIENT IS MEDICATION COMPLIANT BUT WANTS ALL INFORMATION ON EVERY MEDICATION. PATIENT FREQUENTLY ASKS FOR FOOD/WATER/PHONE USAGE. PATIENT IS AMBULATORY WITH NO ASSISTANCE AND DENIES SI/HI AT THIS TIME. WILL CONTINUE TO MONITOR Q 15 MINUTES FOR SAFETY AND BEHAVIOR.
[2022-11-13 20:28] VITALS: BP 143/57
[2022-11-13] MEDS: METOPROLOL SUCCINATE 50 MG TAB.SR.24H PO SCH (21:42)
[2022-11-13] MEDS: ATORVASTATIN 10 MG TABLET PO SCH (21:42)
[2022-11-13] MEDS: QUETIAPINE FUMARATE 100 MG TABLET PO SCH (21:43)
[2022-11-13] MEDS: LORAZEPAM 0.5 MG TABLET PO PRN (21:50)
--- NOTE | 2022-11-14 07:23 | NUR ---
GPS RN OPENING NOTES: RECEIVED PATIENT ASLEEP IN BED BUT EASILY AROUSES TO VOICE. NO RESPIRATORY DISTRESS NOTED ON THE PATIENT, BREATHING EVEN AND UNLABORED. PATIENT IS GUARDED, RESTLESS, ANXIOUS, ISOLATIVE, AND NEEDY. PATIENT CONSTANTLY GOES BACK AND FORTH FROM HER ROOM TO THE DINING ROOM BUT NO EPISODE OF AGITATION NOTED AT THIS TIME. PATIENT DENIES SI/HI AT THIS TIME. ALL SAFETY MEASURES IN PLACE. WILL CONTINUE TO MONITOR Q 15 MINUTES FOR SAFETY AND BEHAVIOR.
[2022-11-14] MEDS: PANTOPRAZOLE 40 MG TABLET.DR PO SCH (07:59)
[2022-11-14] MEDS: METFORMIN 500 MG TABLET PO SCH ×2 (09:14→16:15)
[2022-11-14] MEDS: DILTIAZEM HCL CD 120 MG PO SCH (09:15)
[2022-11-14] MEDS: hydrALAZINE HCL 25 MG TABLET PO SCH ×3 (09:15→16:18)
[2022-11-14] MEDS: APIXABAN 5 MG TABLET PO SCH ×2 (09:16→16:16)
[2022-11-14] MEDS: DIGOXIN 0.125 MG TABLET PO SCH (12:34)
[2022-11-14 16:00] VITALS: BP 119/52
--- NOTE | 2022-11-14 18:20 | NUR ---
GPS RN CLOSING NOTES: PATIENT IN BED EATING HER DINNER BUT WAS CONSTANTLY GOING BACK AND FORTH FROM HER ROOM TO THE DINING ROOM MOST OF THE SHIFT. NO RESPIRATORY DISTRESS NOTED THROUGHOUT SHIFT. ON RA TOLERATING WELL. PATIENT IS ALERT, ORIENTED X 2. PATIENT REMAINS GUARDED, RESTLESS AND ISOLATIVE THROUGHOUT SHIFT BUT NO EPISODES OF SCREAMING AND VERBAL ABUSE AND NO EPISODE OF AGITATION NOTED THROUGHOUT SHIFT. PATIENT WAS COMPLIANT WITH ALL HER MEDICATIONS. PATIENT DENIES SI/HI AT THIS TIME. ALL SAFETY MEASURES IMPLEMENTED. WILL ENDORSE TO NEXT SHIFT NURSE FOR CONTINUITY OF CARE.
[2022-11-14 20:22] VITALS: BP 138/57
[2022-11-14] MEDS: METOPROLOL SUCCINATE 50 MG TAB.SR.24H PO SCH (21:49)
[2022-11-14] MEDS: QUETIAPINE FUMARATE 100 MG TABLET PO SCH (21:49)
[2022-11-14] MEDS: LORAZEPAM 0.5 MG TABLET PO PRN ×2 (21:59→22:09)
[2022-11-14] MEDS: ATORVASTATIN 10 MG TABLET PO SCH (22:10)
--- NOTE | 2022-11-15 07:30 | NUR ---
RN NOTES PT IN BED, ASLEEP, EASY TO AROUSE, ALERT AND VERBALLY RESPONSIVE, NO COMPLAINT OF PAIN, RESPIRATIONS NORMAL, KEPT WARM AND COMFORTABLE IN BED.
[2022-11-15] MEDS: PANTOPRAZOLE 40 MG TABLET.DR PO SCH (08:39)
[2022-11-15] MEDS: METFORMIN 500 MG TABLET PO SCH ×2 (08:39→16:52)
[2022-11-15] MEDS: APIXABAN 5 MG TABLET PO SCH ×2 (08:44→16:58)
[2022-11-15] MEDS: hydrALAZINE HCL 25 MG TABLET PO SCH ×4 (08:44→16:56)
[2022-11-15] MEDS: DILTIAZEM HCL CD 120 MG PO SCH ×2 (08:45→10:06)
[2022-11-15] MEDS: DIGOXIN 0.125 MG TABLET PO SCH (12:22)
[2022-11-15 16:00] VITALS: BP 113/56
--- NOTE | 2022-11-15 18:38 | NUR ---
RN NOTES PT AWAKE, WALKING ALONG THE HALLWAY, NO BEHAVIOR PROBLEM NOTED, NEEDS ATTENDED, WITH GOOD APPETITE, ALL NEEDS ATTENDED.
[2022-11-15 20:28] VITALS: BP 131/58
[2022-11-15] MEDS: ATORVASTATIN 10 MG TABLET PO SCH (21:14)
[2022-11-15] MEDS: QUETIAPINE FUMARATE 100 MG TABLET PO SCH (21:14)
[2022-11-15] MEDS: METOPROLOL SUCCINATE 50 MG TAB.SR.24H PO SCH (21:18)
[2022-11-15] MEDS: LORAZEPAM 0.5 MG TABLET PO PRN (21:21)
[2022-11-15] MEDS: INSULIN REGULAR, HUMAN 100 UNIT/ML 3 ML VIAL SQ PRN (22:28)
--- NOTE | 2022-11-16 05:44 | NUR ---
END OF SHIFT REPORT Patient in bed, sleeping arouses easily. Calm, no agitated behavior during the shift. On Ativan PRN. Still with paranoia, denies SI/HI ideation. Patient to be discharged to SNF today. Will test for Covid prior dc. Will endorse to oncoming RN.
--- NOTE | 2022-11-16 07:30 | NUR ---
RN NOTES PT IN BED, ASLEEP, EASY TO AROUSE, ALERT AND VERBALLY RESPONSIVE, NO COMPLAINT OF PAIN, RESPIRATIONS NORMAL, KEPT WARM AND COMFORTABLE IN BED.
[2022-11-16 08:00] VITALS: BP 110/54
--- NOTE | 2022-11-16 08:39 | NUR ---
SW Discharge Note: Patient will be discharged to longterm facility to [facility] [address] [place] [address]; ([phone]). Please coordinate ambulance transportation. It Software Engineer spoke with Rosa cerda ([phone]) who stated that pt is welcomed today. Patient is alert and oriented x2 and is not able to plan for self-care. Patient denies any suicidal or homicidal ideations. Patient is aware and agreeable with discharge plans. Patients mother Kenzie ([phone]) is aware and agreeable of dc. Patient will continue to follow-up with (psychiatrist) Dr. Amato [address] [facility] [address], [place] [address]; ([phone]) and (oxidized finish plater) Dr. Mcdowell [address] [facility] [address], [place] [address]; ([phone]). Patient presents with euthymic mood and congruent affect.
--- NOTE | 2022-11-16 09:25 | NUR ---
RAPID COVID-19 TEST WAS GIVEN TO THE PATIENT, ORDERED AWAITING DC TODAY.
[2022-11-16] MEDS: PANTOPRAZOLE 40 MG TABLET.DR PO SCH (09:36)
[2022-11-16] MEDS: hydrALAZINE HCL 25 MG TABLET PO SCH ×2 (09:37→13:36)
[2022-11-16] MEDS: DILTIAZEM HCL CD 120 MG PO SCH (09:38)
[2022-11-16] MEDS: METFORMIN 500 MG TABLET PO SCH (09:38)
[2022-11-16] MEDS: APIXABAN 5 MG TABLET PO SCH (09:40)
[2022-11-16] MEDS: DIGOXIN 0.125 MG TABLET PO SCH (13:35)
[2022-11-16 13:36] VITALS: BP 112/68
--- NOTE | 2022-11-16 14:35 | NUR ---
DISCHARGED PATIENT TO [facility]. REPORTS CALLED AND GIVEN TO DANNY BOND. PATIENT A/O X 2-3, STABLE AT THIS TIME, NO COMPLAINTS OF PAIN OR DISCOMFORT. PATIENT DENIES SUICIDAL AND HOMICIDAL IDEATION, DENIES AUDITORY AND VISUAL HALLUCINATION. PATIENT'S BELONGINGS WERE ALL ACCOUNTED FOR. DISCHARGE INSTRUCTIONS GIVEN TO PATIENT AND ENDORSED TO shaper hand FROM [facility], BOTH VERBALLY AND IN WRITING. PATIENT DISCHARGED AT 1435. CHARGE NURSE AWARE OF THE DISCHARGE.
== END 2022-11-16 14:35 | DRG 885 ==
LOC: ER 20:31 → GPS 11-02 00:42
PROVIDERS: ADMIT Psychiatry & Neurology Psychosomatic Medicine; ATTEND Nurse Practitioner Acute Care
DX: F25.0 Schizoaffective disorder, bipolar type (principal); E11.65 Type 2 diabetes mellitus with hyperglycemia; G93.41 Metabolic encephalopathy; R45.851 Suicidal ideations; I48.20 Chronic atrial fibrillation, unspecified; E44.1 Mild protein-calorie malnutrition; Z20.822 Contact with and (suspected) exposure to COVID-19; E78.5 Hyperlipidemia, unspecified; I10 Essential (primary) hypertension; Z88.1 Allergy status to other antibiotic agents; Z88.0 Allergy status to penicillin; Z88.8 Allergy status to other drugs, medicaments and biological substances; Z79.01 Long term (current) use of anticoagulants; Z79.84 Long term (current) use of oral hypoglycemic drugs; Z79.899 Other long term (current) drug therapy; J44.9 Chronic obstructive pulmonary disease, unspecified; Z53.20 Procedure and treatment not carried out because of patient's decision for unspecified reasons; Z73.6 Limitation of activities due to disability; F03.90 Unspecified dementia, unspecified severity, without behavioral disturbance, psychotic disturbance, mood disturbance, and anxiety; Z91.14 Patient's other noncompliance with medication regimen; Z91.199 Patient's noncompliance with other medical treatment and regimen due to unspecified reason; Z68.34 Body mass index [BMI] 34.0-34.9, adult; E66.9 Obesity, unspecified; Z79.51 Long term (current) use of inhaled steroids; F39 Unspecified mood [affective] disorder
CPT/HCPCS: 36415; 80048-TC; 80076-TC; 82962-TC; 85025-TC; 87081-TC; C9803; G0480; J1815; J2060; J3490

== ENCOUNTER 2022-12-28 18:27 | Emergency (ER) | payer MEDICARE, OTHER ==
[~2022-12-28] VITALS: Ht 170.2 cm; Wt 108.9 kg
[~2022-12-28 18:27] MED LIST changes: -BUDE10.22 IH; +HYDR-4076 PO; -HYDR25TA4 PO; +METO25TA4 PO; -OLAN15TA3 PO; -PANT40TA49 PO; -SERT25TA; -TRAZ-182
[2022-12-28 18:59] VITALS: BP 170/74
[2022-12-28] MEDS ORDERED: DOXY-326 PO ×2 (19:06→19:27)
[2022-12-28] MEDS ORDERED: DOXYCYCLINE HYCLATE (100 MG) 100 MG TABLET PO ONE (19:30)
[2022-12-28] MEDS ORDERED: DOXYCYCLINE HYCLATE (100 MG) 100 MG TABLET ONE (19:33)
--- NOTE | 2022-12-28 19:50 | NUR ---
[facility] CALLED FOR BLS GOING BACK TO SNF PER [facility] ETA 45 MIN
--- NOTE | 2022-12-28 20:34 | NUR ---
PICKED UP BY [facility] BACK TO FACILITY
--- NOTE | 2022-12-28 20:38 | NUR ---
REPORT GIVEN TO CARO FROM [facility]
== END 2022-12-28 22:37 | disposition home or self-care (01) ==
LOC: ER 18:59
DX: J40 Bronchitis, not specified as acute or chronic (principal); I10 Essential (primary) hypertension; F17.210 Nicotine dependence, cigarettes, uncomplicated; J44.9 Chronic obstructive pulmonary disease, unspecified; K21.9 Gastro-esophageal reflux disease without esophagitis; E11.9 Type 2 diabetes mellitus without complications; Z88.0 Allergy status to penicillin; Z88.8 Allergy status to other drugs, medicaments and biological substances; Z59.00 Homelessness unspecified; Z79.899 Other long term (current) drug therapy

== ENCOUNTER 2023-07-06 10:41 | Inpatient (IN) | payer MEDICARE, OTHER ==
[~2023-07-06] VITALS: Ht 170.2 cm; Wt 101.6 kg
[~2023-07-06 10:41] MED LIST changes: +DOXY-326 PO
[2023-07-06] MEDS ORDERED: LORA-259 PO (11:55)
[2023-07-06] MEDS ORDERED: QUET400T PO (11:55)
[2023-07-06 13:52] LABS: BASOPHILS # (AUTO) 0.1 K/uL (0.0-0.2); BASOPHILS % (AUTO) 0.9 % (0.0-2.0); EOSINOPHILS # (AUTO) 0.1 K/uL (0.0-0.7); EOSINOPHILS % (AUTO) 0.9 % (0.0-6.0); HEMATOCRIT 35 % (33-45); HEMOGLOBIN 11.6 g/dL (11.5-14.8); LYMPHOCYTES # (AUTO) 2.9 K/uL (0.8-4.8); LYMPHOCYTES % (AUTO) 25.8 % (20.0-44.0); MEAN CORPUSCULAR HEMOGLOBIN 30 PG (26.0-33.0); MEAN CORPUSCULAR HGB CONC 33 g/dl (31.0-36.0); MEAN CORPUSCULAR VOLUME 90 fL (82-100); MONOCYTES # (AUTO) 0.6 K/uL (0.1-1.30); MONOCYTES % (AUTO) 5.3 % (2.0-12.0); NEUTROPHILS # (AUTO) 7.5 K/uL (1.8-8.9); NEUTROPHILS % (AUTO) 67.1 % (43.0-81.0); PLATELET COUNT (AUTO) 312 K/uL (150-450); RED BLOOD CELL COUNT(AUTO) 3.91 MIL/uL (4.0-5.2); RED CELL DISTRIBUTION WIDTH 14.3 % (11.5-15.0); WHITE BLOOD COUNT (AUTO) 11.1 K/uL (4.3-11.0)
[2023-07-06 14:01] LABS: CALCIUM, SERUM 9.1 mg/dL (8.5-10.1); CARBON DIOXIDE 26 mmol/L (21-32); CHLORIDE 106 mmol/L (98-107); CREATININE 0.4 mg/dL (0.6-1.3); GLUCOSE 125 mg/dL (74-106); POTASSIUM 3.9 mmol/L (3.5-5.1); SODIUM SERUM 141 mmol/L (136-145); UREA NITROGEN, BLOOD 8 mg/dL (7-18)
[2023-07-06 14:09] LABS: ALANINE AMINOTRANSFERASE 56 U/L (12-78); ALBUMIN 3.4 g/dL (3.4-5.0); ALCOHOL, BLOOD 3 mg/dL (0-10); ALKALINE PHOSPHATASE 314 U/L (46-116); ASPARTATE AMINOTRANSFERASE 32 U/L (15-37); BILIRUBIN,DIRECT 0.2 mg/dL (0.0-0.2); BILIRUBIN,TOTAL 0.5 mg/dL (0.2-1.0); SALICYLATE 2.6 mg/dL (2.8-20.0); TOTAL PROTEIN, SERUM 7.3 g/dL (6.4-8.2)
[2023-07-06 14:10] LABS: ACETAMINOPHEN <10 ug/ml (10-30)
[2023-07-06 17:30] VITALS: BP 149/64; TEMP 98; O2SAT 98
[2023-07-06] MEDS ORDERED: BLOOD SUGAR DIAGNOSTIC 1 EACH STRIP IN ONE (17:30)
[2023-07-06] MEDS ORDERED: ZOLPIDEM TARTRATE 5 MG TABLET PO PRN (17:30)
[2023-07-06] MEDS ORDERED: MAGNESIUM HYDROXIDE 30 ML UDC PO PRN (17:30)
[2023-07-06] MEDS ORDERED: DEXTROSE 50%-WATER 50 ML DISP.SYRIN IV PRN (18:30)
[2023-07-06] MEDS: METFORMIN 500 MG TABLET PO SCH (18:49)
[2023-07-06] MEDS: APIXABAN 5 MG TABLET PO SCH (18:50)
[2023-07-06 20:00] VITALS: BP 125/71; TEMP 98.1; O2SAT 98
[2023-07-06] MEDS: ATORVASTATIN 10 MG TABLET PO SCH (21:28)
[2023-07-06] MEDS: BLOOD SUGAR DIAGNOSTIC 1 EACH STRIP IN SCH (22:17)
[2023-07-07 08:00] VITALS: BP 134/51; TEMP 97.8; O2SAT 100
[2023-07-07] MEDS: BLOOD SUGAR DIAGNOSTIC 1 EACH STRIP IN SCH ×4 (08:00→23:15)
[2023-07-07] MEDS: INSULIN REGULAR, HUMAN 100 UNIT/ML 3 ML VIAL SQ PRN (08:32)
[2023-07-07] MEDS: METFORMIN 500 MG TABLET PO SCH ×2 (08:46→16:18)
[2023-07-07] MEDS: DILTIAZEM HCL CD 120 MG PO SCH (08:46)
[2023-07-07] MEDS: APIXABAN 5 MG TABLET PO SCH ×2 (08:47→16:21)
[2023-07-07] MEDS: hydrALAZINE HCL 25 MG TABLET PO SCH ×3 (08:48→16:19)
[2023-07-07] MEDS: DIGOXIN 0.125 MG TABLET PO SCH (08:48)
[2023-07-07] MEDS: LORAZEPAM 0.5 MG TABLET PO PRN ×2 (11:06→22:29)
[2023-07-07 16:00] VITALS: BP 123/97; TEMP 97.8; O2SAT 98
[2023-07-07 20:00] VITALS: BP 127/63; TEMP 97.9; O2SAT 100
[2023-07-07] MEDS: QUETIAPINE FUMARATE 100 MG TABLET PO SCH (21:25)
[2023-07-07] MEDS: ATORVASTATIN 10 MG TABLET PO SCH (22:23)
[2023-07-08 08:00] VITALS: BP 120/66; TEMP 98; O2SAT 100
[2023-07-08] MEDS: BLOOD SUGAR DIAGNOSTIC 1 EACH STRIP IN SCH ×6 (08:08→21:38)
[2023-07-08] MEDS: DILTIAZEM HCL CD 120 MG PO SCH (08:09)
[2023-07-08] MEDS: DIGOXIN 0.125 MG TABLET PO SCH (08:09)
[2023-07-08] MEDS: hydrALAZINE HCL 25 MG TABLET PO SCH ×3 (08:09→16:07)
[2023-07-08] MEDS: METFORMIN 500 MG TABLET PO SCH ×2 (08:09→16:07)
[2023-07-08] MEDS: APIXABAN 5 MG TABLET PO SCH ×2 (08:10→16:45)
[2023-07-08] MEDS: INSULIN REGULAR, HUMAN 100 UNIT/ML 3 ML VIAL SQ PRN (08:11)
[2023-07-08] MEDS: PANTOPRAZOLE 40 MG TABLET.DR PO SCH (14:43)
[2023-07-08 16:00] VITALS: BP 123/59; TEMP 97.6; O2SAT 100
[2023-07-08 20:00] VITALS: BP 133/57; TEMP 98.6; O2SAT 98
[2023-07-08] MEDS: QUETIAPINE FUMARATE 100 MG TABLET PO SCH (21:33)
[2023-07-08] MEDS: ATORVASTATIN 10 MG TABLET PO SCH (21:33)
[2023-07-09 08:00] VITALS: BP 110/55; TEMP 98.2; O2SAT 97
[2023-07-09] MEDS: PANTOPRAZOLE 40 MG TABLET.DR PO SCH (08:25)
[2023-07-09] MEDS: METFORMIN 500 MG TABLET PO SCH ×2 (08:25→16:03)
[2023-07-09] MEDS: DILTIAZEM HCL CD 120 MG PO SCH (08:25)
[2023-07-09] MEDS: APIXABAN 5 MG TABLET PO SCH ×2 (08:28→16:03)
[2023-07-09] MEDS: BLOOD SUGAR DIAGNOSTIC 1 EACH STRIP IN SCH ×4 (08:29→21:15)
[2023-07-09] MEDS: DIGOXIN 0.125 MG TABLET PO SCH (08:29)
[2023-07-09] MEDS: hydrALAZINE HCL 25 MG TABLET PO SCH ×3 (08:29→16:04)
[2023-07-09] MEDS: INSULIN REGULAR, HUMAN 100 UNIT/ML 3 ML VIAL SQ PRN (09:18)
[2023-07-09 16:00] VITALS: BP 127/60; TEMP 98; O2SAT 98
[2023-07-09] MEDS: LORAZEPAM 0.5 MG TABLET PO PRN (16:03)
[2023-07-09 20:24] VITALS: BP 133/61; TEMP 98.2; O2SAT 100
[2023-07-09] MEDS: QUETIAPINE FUMARATE 100 MG TABLET PO SCH (20:45)
[2023-07-09] MEDS: MAG HYDROX/AL HYDROX/SIMETH 30 ML UDC PO PRN (20:49)
[2023-07-09] MEDS: ATORVASTATIN 10 MG TABLET PO SCH (21:02)
[2023-07-10 08:00] VITALS: BP 144/68; TEMP 98.7; O2SAT 96
[2023-07-10] MEDS: PANTOPRAZOLE 40 MG TABLET.DR PO SCH (08:16)
[2023-07-10] MEDS: BLOOD SUGAR DIAGNOSTIC 1 EACH STRIP IN SCH ×4 (08:17→21:06)
[2023-07-10] MEDS: DIGOXIN 0.125 MG TABLET PO SCH (08:21)
[2023-07-10] MEDS: DILTIAZEM HCL CD 120 MG PO SCH (08:22)
[2023-07-10] MEDS: hydrALAZINE HCL 25 MG TABLET PO SCH ×3 (08:22→16:15)
[2023-07-10] MEDS: METFORMIN 500 MG TABLET PO SCH ×2 (08:22→16:15)
[2023-07-10] MEDS: APIXABAN 5 MG TABLET PO SCH ×2 (08:23→16:16)
[2023-07-10 16:00] VITALS: BP 133/81; TEMP 98.6; O2SAT 96
[2023-07-10 20:20] VITALS: BP 132/61; TEMP 98.2; O2SAT 98
[2023-07-10] MEDS: QUETIAPINE FUMARATE 100 MG TABLET PO SCH (20:26)
[2023-07-10] MEDS: MAG HYDROX/AL HYDROX/SIMETH 30 ML UDC PO PRN (20:29)
[2023-07-10] MEDS: LORAZEPAM 0.5 MG TABLET PO PRN (20:30)
[2023-07-10] MEDS: ATORVASTATIN 10 MG TABLET PO SCH (21:06)
[2023-07-11] MEDS: BLOOD SUGAR DIAGNOSTIC 1 EACH STRIP IN SCH ×4 (07:30→22:00)
[2023-07-11] MEDS: PANTOPRAZOLE 40 MG TABLET.DR PO SCH ×2 (07:30→08:43)
[2023-07-11 08:00] VITALS: BP 129/72; TEMP 98.2; O2SAT 98
[2023-07-11] MEDS: DILTIAZEM HCL CD 120 MG PO SCH (08:33)
[2023-07-11] MEDS: LORAZEPAM 0.5 MG TABLET PO PRN (08:33)
[2023-07-11] MEDS: DIGOXIN 0.125 MG TABLET PO SCH (08:33)
[2023-07-11] MEDS: METFORMIN 500 MG TABLET PO SCH ×2 (08:34→17:30)
[2023-07-11] MEDS: hydrALAZINE HCL 25 MG TABLET PO SCH ×3 (08:34→17:31)
[2023-07-11] MEDS: APIXABAN 5 MG TABLET PO SCH ×2 (08:35→17:32)
[2023-07-11 16:00] VITALS: BP 127/69; TEMP 98.4; O2SAT 96
[2023-07-11] MEDS: MAG HYDROX/AL HYDROX/SIMETH 30 ML UDC PO PRN (18:13)
[2023-07-11] MEDS: ATORVASTATIN 10 MG TABLET PO SCH (21:26)
[2023-07-11] MEDS: QUETIAPINE FUMARATE 100 MG TABLET PO SCH (21:26)
[2023-07-11 21:28] VITALS: BP 122/65; TEMP 99.1; O2SAT 97
[2023-07-11] MEDS: INSULIN REGULAR, HUMAN 100 UNIT/ML 3 ML VIAL SQ PRN (22:04)
[2023-07-12 08:00] VITALS: BP 135/55; TEMP 97.7; O2SAT 97
[2023-07-12] MEDS: BLOOD SUGAR DIAGNOSTIC 1 EACH STRIP IN SCH ×4 (08:29→22:00)
[2023-07-12] MEDS: PANTOPRAZOLE 40 MG TABLET.DR PO SCH (08:29)
[2023-07-12] MEDS: DILTIAZEM HCL CD 120 MG PO SCH (08:40)
[2023-07-12] MEDS: hydrALAZINE HCL 25 MG TABLET PO SCH ×3 (08:41→17:00)
[2023-07-12] MEDS: DIGOXIN 0.125 MG TABLET PO SCH (08:41)
[2023-07-12] MEDS: APIXABAN 5 MG TABLET PO SCH ×2 (08:42→17:18)
[2023-07-12] MEDS: METFORMIN 500 MG TABLET PO SCH ×2 (08:42→17:17)
[2023-07-12 16:00] VITALS: BP 121/57; TEMP 98.7; O2SAT 99
[2023-07-12] MEDS: LORAZEPAM 0.5 MG TABLET PO PRN (17:17)
[2023-07-12 20:24] VITALS: BP 136/69; TEMP 98.6; O2SAT 96
[2023-07-12] MEDS: QUETIAPINE FUMARATE 100 MG TABLET PO SCH (20:30)
[2023-07-12] MEDS: ATORVASTATIN 10 MG TABLET PO SCH (21:02)
[2023-07-12] MEDS: MAG HYDROX/AL HYDROX/SIMETH 30 ML UDC PO PRN (21:13)
[2023-07-13 08:00] VITALS: BP 119/63; TEMP 97.8; O2SAT 95
[2023-07-13] MEDS: BLOOD SUGAR DIAGNOSTIC 1 EACH STRIP IN SCH ×4 (08:39→21:25)
[2023-07-13] MEDS: DILTIAZEM HCL CD 120 MG PO SCH (08:40)
[2023-07-13] MEDS: METFORMIN 500 MG TABLET PO SCH ×2 (08:40→16:16)
[2023-07-13] MEDS: APIXABAN 5 MG TABLET PO SCH ×2 (08:40→16:16)
[2023-07-13] MEDS: hydrALAZINE HCL 25 MG TABLET PO SCH ×3 (08:41→16:22)
[2023-07-13] MEDS: DIGOXIN 0.125 MG TABLET PO SCH (08:41)
[2023-07-13] MEDS: PANTOPRAZOLE 40 MG TABLET.DR PO SCH (08:41)
[2023-07-13] MEDS: LORAZEPAM 0.5 MG TABLET PO PRN (16:16)
[2023-07-13 20:00] VITALS: BP 143/73; TEMP 97.5; O2SAT 99
[2023-07-13] MEDS: QUETIAPINE FUMARATE 100 MG TABLET PO SCH (21:14)
[2023-07-13] MEDS: ATORVASTATIN 10 MG TABLET PO SCH (21:14)
[2023-07-13] MEDS: MAG HYDROX/AL HYDROX/SIMETH 30 ML UDC PO PRN (21:21)
[2023-07-14] MEDS: BLOOD SUGAR DIAGNOSTIC 1 EACH STRIP IN SCH ×4 (07:30→21:33)
[2023-07-14 08:00] VITALS: BP 119/63; TEMP 97.8; O2SAT 100
[2023-07-14] MEDS: PANTOPRAZOLE 40 MG TABLET.DR PO SCH (08:12)
[2023-07-14] MEDS: METFORMIN 500 MG TABLET PO SCH ×2 (08:12→16:16)
[2023-07-14] MEDS: DIGOXIN 0.125 MG TABLET PO SCH (08:13)
[2023-07-14] MEDS: APIXABAN 5 MG TABLET PO SCH ×2 (08:13→16:16)
[2023-07-14] MEDS: DILTIAZEM HCL CD 120 MG PO SCH (08:14)
[2023-07-14] MEDS: hydrALAZINE HCL 25 MG TABLET PO SCH ×3 (08:14→16:16)
[2023-07-14 16:00] VITALS: BP 119/64; TEMP 98.2; O2SAT 100
[2023-07-14] MEDS: LORAZEPAM 0.5 MG TABLET PO PRN (16:16)
[2023-07-14 16:23] VITALS: BP_SYST 119; BP_SYST 140; BP_DIAS 63; BP_DIAS 64; TEMP 97.8; TEMP 98.2; O2SAT 100; O2SAT 97
[2023-07-14 20:00] VITALS: BP 130/59; TEMP 98.2; O2SAT 97
[2023-07-14] MEDS: ATORVASTATIN 10 MG TABLET PO SCH (21:10)
[2023-07-14] MEDS: QUETIAPINE FUMARATE 100 MG TABLET PO SCH (21:10)
[2023-07-14] MEDS: MAG HYDROX/AL HYDROX/SIMETH 30 ML UDC PO PRN (21:23)
[2023-07-15 08:00] VITALS: BP 123/66; TEMP 97.9; O2SAT 98
[2023-07-15] MEDS: BLOOD SUGAR DIAGNOSTIC 1 EACH STRIP IN SCH ×4 (08:00→21:01)
[2023-07-15] MEDS: PANTOPRAZOLE 40 MG TABLET.DR PO SCH (08:14)
[2023-07-15] MEDS: METFORMIN 500 MG TABLET PO SCH ×2 (08:14→16:03)
[2023-07-15] MEDS: hydrALAZINE HCL 25 MG TABLET PO SCH ×3 (08:15→16:05)
[2023-07-15] MEDS: APIXABAN 5 MG TABLET PO SCH ×2 (08:15→16:04)
[2023-07-15] MEDS: DILTIAZEM HCL CD 120 MG PO SCH (08:15)
[2023-07-15] MEDS: DIGOXIN 0.125 MG TABLET PO SCH (08:15)
[2023-07-15] MEDS: LORAZEPAM 0.5 MG TABLET PO PRN (10:17)
[2023-07-15 16:00] VITALS: BP 117/64; TEMP 97.8; O2SAT 98
[2023-07-15] MEDS: ATORVASTATIN 10 MG TABLET PO SCH (21:01)
[2023-07-15] MEDS: QUETIAPINE FUMARATE 100 MG TABLET PO SCH (21:01)
[2023-07-15] MEDS: MAG HYDROX/AL HYDROX/SIMETH 30 ML UDC PO PRN (21:21)
[2023-07-16] MEDS: BLOOD SUGAR DIAGNOSTIC 1 EACH STRIP IN SCH ×4 (07:30→21:06)
[2023-07-16 08:00] VITALS: BP 119/56; TEMP 97.8; O2SAT 96
[2023-07-16] MEDS: APIXABAN 5 MG TABLET PO SCH ×2 (08:41→16:41)
[2023-07-16] MEDS: METFORMIN 500 MG TABLET PO SCH ×2 (08:41→16:40)
[2023-07-16] MEDS: PANTOPRAZOLE 40 MG TABLET.DR PO SCH (08:41)
[2023-07-16] MEDS: DIGOXIN 0.125 MG TABLET PO SCH (08:41)
[2023-07-16] MEDS: hydrALAZINE HCL 25 MG TABLET PO SCH ×3 (08:42→16:41)
[2023-07-16] MEDS: DILTIAZEM HCL CD 120 MG PO SCH (08:42)
[2023-07-16] MEDS: LORAZEPAM 0.5 MG TABLET PO PRN (11:24)
[2023-07-16] MEDS: INSULIN REGULAR, HUMAN 100 UNIT/ML 3 ML VIAL SQ PRN (12:32)
[2023-07-16 15:58] VITALS: BP 99/55; TEMP 98.1; O2SAT 98
[2023-07-16 20:08] VITALS: BP 124/58; TEMP 97.9; O2SAT 98
[2023-07-16] MEDS: ATORVASTATIN 10 MG TABLET PO SCH (21:01)
[2023-07-16] MEDS: QUETIAPINE FUMARATE 100 MG TABLET PO SCH (21:02)
[2023-07-16] MEDS: MAG HYDROX/AL HYDROX/SIMETH 30 ML UDC PO PRN (21:03)
[2023-07-17 08:00] VITALS: BP 145/66; TEMP 98.4; O2SAT 97
[2023-07-17] MEDS: PANTOPRAZOLE 40 MG TABLET.DR PO SCH (08:24)
[2023-07-17] MEDS: BLOOD SUGAR DIAGNOSTIC 1 EACH STRIP IN SCH ×4 (08:24→22:00)
[2023-07-17] MEDS: DILTIAZEM HCL CD 120 MG PO SCH (08:28)
[2023-07-17] MEDS: APIXABAN 5 MG TABLET PO SCH ×2 (08:29→17:46)
[2023-07-17] MEDS: DIGOXIN 0.125 MG TABLET PO SCH (08:30)
[2023-07-17] MEDS: hydrALAZINE HCL 25 MG TABLET PO SCH ×3 (08:30→17:00)
[2023-07-17] MEDS: METFORMIN 500 MG TABLET PO SCH ×2 (08:30→17:46)
[2023-07-17 16:00] VITALS: BP 123/58; TEMP 98.2; O2SAT 97
[2023-07-17 19:41] VITALS: BP 118/61; TEMP 98.1; O2SAT 97
[2023-07-17] MEDS: QUETIAPINE FUMARATE 100 MG TABLET PO SCH (20:59)
[2023-07-17] MEDS: ATORVASTATIN 10 MG TABLET PO SCH (21:05)
[2023-07-17] MEDS: MAG HYDROX/AL HYDROX/SIMETH 30 ML UDC PO PRN (21:17)
[2023-07-17] MEDS: ACETAMINOPHEN 325 MG TABLET PO PRN (21:18)
[2023-07-18] MEDS: BLOOD SUGAR DIAGNOSTIC 1 EACH STRIP IN SCH ×4 (07:30→21:32)
[2023-07-18 08:00] VITALS: BP 109/51; TEMP 98.8; O2SAT 98
[2023-07-18] MEDS: PANTOPRAZOLE 40 MG TABLET.DR PO SCH (08:24)
[2023-07-18] MEDS: DIGOXIN 0.125 MG TABLET PO SCH (08:24)
[2023-07-18] MEDS: METFORMIN 500 MG TABLET PO SCH ×2 (08:24→16:56)
[2023-07-18] MEDS: DILTIAZEM HCL CD 120 MG PO SCH (08:25)
[2023-07-18] MEDS: APIXABAN 5 MG TABLET PO SCH ×2 (08:25→16:56)
[2023-07-18] MEDS: hydrALAZINE HCL 25 MG TABLET PO SCH ×3 (08:25→16:57)
[2023-07-18] MEDS ORDERED: POLYVINYL ALCOHOL 15 ML BOTTLE LEFTEYE PRN (08:30)
[2023-07-18] MEDS: MAG HYDROX/AL HYDROX/SIMETH 30 ML UDC PO PRN (10:49)
[2023-07-18 16:00] VITALS: TEMP 98.1; O2SAT 96
[2023-07-18] MEDS: QUETIAPINE FUMARATE 100 MG TABLET PO SCH (20:02)
[2023-07-18] MEDS: ATORVASTATIN 10 MG TABLET PO SCH (21:32)
[2023-07-18] MEDS: LORAZEPAM 0.5 MG TABLET PO PRN (23:54)
[2023-07-19] MEDS: ACETAMINOPHEN 325 MG TABLET PO PRN (04:17)
[2023-07-19] MEDS: BLOOD SUGAR DIAGNOSTIC 1 EACH STRIP IN SCH ×3 (07:30→12:00)
[2023-07-19 08:00] VITALS: BP 110/54; TEMP 98.7; O2SAT 100
[2023-07-19] MEDS: PANTOPRAZOLE 40 MG TABLET.DR PO SCH (08:09)
[2023-07-19] MEDS: APIXABAN 5 MG TABLET PO SCH (08:56)
[2023-07-19] MEDS: METFORMIN 500 MG TABLET PO SCH (08:57)
[2023-07-19] MEDS: DIGOXIN 0.125 MG TABLET PO SCH (08:57)
[2023-07-19] MEDS: DILTIAZEM HCL CD 120 MG PO SCH (08:57)
[2023-07-19] MEDS: hydrALAZINE HCL 25 MG TABLET PO SCH (08:57)
== END 2023-07-19 11:15 | disposition home or self-care (01) | DRG 885 ==
LOC: ER 11:00 → GPS 16:19
PROVIDERS: ADMIT Psychiatry & Neurology Psychosomatic Medicine; ATTEND Student in an Organized Health Care Education/Training Program
DX: F25.9 Schizoaffective disorder, unspecified (principal); R45.851 Suicidal ideations; J44.9 Chronic obstructive pulmonary disease, unspecified; E11.9 Type 2 diabetes mellitus without complications; K21.9 Gastro-esophageal reflux disease without esophagitis; E78.5 Hyperlipidemia, unspecified; I10 Essential (primary) hypertension; Z79.01 Long term (current) use of anticoagulants; Z79.84 Long term (current) use of oral hypoglycemic drugs; Z79.899 Other long term (current) drug therapy; Z88.0 Allergy status to penicillin; Z73.6 Limitation of activities due to disability
CPT/HCPCS: 36415; 80048-TC; 80076-TC; 82962-TC; 85025-TC; G0480; J1815

== ENCOUNTER 2025-01-07 18:38 | Inpatient (IN) | payer MEDICARE, OTHER ==
[~2025-01-07] VITALS: Ht 170.2 cm; Wt 99.8 kg
[~2025-01-07 18:38] MED LIST changes: -DOCU-141 PO; -DOXY-326 PO; +LORA-259 PO; -METO25TA4 PO; -QUET200T PO; +QUET400T PO
[2025-01-07 19:28] LABS: BASOPHILS # (AUTO) 0.1 K/uL (0.0-0.2); BASOPHILS % (AUTO) 0.5 % (0.0-2.0); EOSINOPHILS # (AUTO) 0.2 K/uL (0.0-0.7); EOSINOPHILS % (AUTO) 1.5 % (0.0-6.0); HEMATOCRIT 38 % (33-45); HEMOGLOBIN 12.9 g/dL (11.5-14.8); LYMPHOCYTES # (AUTO) 3.1 K/uL (0.8-4.8); LYMPHOCYTES % (AUTO) 29.6 % (20.0-44.0); MEAN CORPUSCULAR HEMOGLOBIN 30 PG (26.0-33.0); MEAN CORPUSCULAR HGB CONC 34 g/dl (31.0-36.0); MEAN CORPUSCULAR VOLUME 89 fL (82-100); MONOCYTES # (AUTO) 0.5 K/uL (0.1-1.30); MONOCYTES % (AUTO) 5.2 % (2.0-12.0); NEUTROPHILS # (AUTO) 6.7 K/uL (1.8-8.9); NEUTROPHILS % (AUTO) 63.2 % (43.0-81.0); PLATELET COUNT (AUTO) 248 K/uL (150-450); RED BLOOD CELL COUNT(AUTO) 4.26 MIL/uL (4.0-5.2); RED CELL DISTRIBUTION WIDTH 15.1 % (11.5-15.0); WHITE BLOOD COUNT (AUTO) 10.5 K/uL (4.3-11.0)
[2025-01-07 19:41] LABS: ALANINE AMINOTRANSFERASE 34 U/L (12-78); ALBUMIN 3.4 g/dL (3.4-5.0); ALCOHOL, BLOOD < 3 mg/dL (0-10); ALKALINE PHOSPHATASE 162 U/L (46-116); ASPARTATE AMINOTRANSFERASE 19 U/L (15-37); BILIRUBIN,DIRECT 0.1 mg/dL (0.0-0.2); BILIRUBIN,TOTAL 0.2 mg/dL (0.2-1.0); CARBON DIOXIDE 28 mmol/L (21-32); CHLORIDE 106 mmol/L (98-107); CREATININE 0.5 mg/dL (0.6-1.3); GLUCOSE 120 mg/dL (74-106); POTASSIUM 3.8 mmol/L (3.5-5.1); SODIUM SERUM 142 mmol/L (136-145); TOTAL PROTEIN, SERUM 7.2 g/dL (6.4-8.2); UREA NITROGEN, BLOOD 12 mg/dL (7-18)
[2025-01-07 19:57] LABS: ACETAMINOPHEN 0 ug/ml (10-30)
[2025-01-07 20:58] LABS: APPEARANCE,URINE CLEAR (CLEAR); BILIRUBIN,URINE NEGATIVE (NEGATIVE); BLOOD, URINE NEGATIVE Ery/uL (NEGATIVE); COLOR,URINE YELLOW (YELLOW); KETONES,URINE TRACE mg/dL (NEGATIVE); LEUKOCYTE ESTERASE ,URINE TRACE (NEGATIVE); NITRITE, URINE NEGATIVE (NEGATIVE); PROTEIN,URINE NEGATIVE (NEGATIVE); UGLUCOSE NEGATIVE (NEGATIVE); UROBILINOGEN,URINE 0.2 EU/dL (0.2)
[2025-01-07 21:10] LABS: AMPHETAMINE, URINE NEGATIVE (NEGATIVE); BARBITURATE, URINE NEGATIVE (NEGATIVE); BENZODIAZEPINE, URINE NEGATIVE (NEGATIVE); CANNABINOID, URINE NEGATIVE (NEGATIVE); COCCAINE, URINE NEGATIVE (NEGATIVE); OPIATE, URINE NEGATIVE (NEGATIVE); PHENCYCLIDINE SCREEN,URINE NEGATIVE (NEGATIVE)
[2025-01-07 21:11] LABS: BACTERIA,URINE Moderate /HPF (None Seen)
[2025-01-07 21:12] LABS: ADD URINE CULTURE YES; RBC,URINE 0-2 /HPF (0-2)
[2025-01-08] MEDS ORDERED: MAGNESIUM HYDROXIDE 30 ML UDC PO PRN
[2025-01-08] MEDS ORDERED: LORAZEPAM 0.5 MG TABLET PO PRN
[2025-01-08] MEDS ORDERED: ZOLPIDEM TARTRATE 5 MG TABLET PO PRN
[2025-01-08] MEDS ORDERED: MAG HYDROX/AL HYDROX/SIMETH 30 ML UDC PO PRN
[2025-01-08] MEDS ORDERED: ACETAMINOPHEN 325 MG TABLET PO PRN
[2025-01-08 00:15] VITALS: BP 140/70; TEMP 97.7; O2SAT 96
[2025-01-08] MEDS: BLOOD SUGAR DIAGNOSTIC 1 EACH STRIP IN ONE (00:52)
[2025-01-08] MEDS ORDERED: METF-442 PO (07:49)
[2025-01-08 08:00] VITALS: BP 125/51; TEMP 97.8; O2SAT 98
[2025-01-08] MEDS: NITROFURANTOIN/MONOHYDRATE MACROCRYSTALS 100 MG CAPSULE PO SCH (12:00)
[2025-01-08] MEDS: hydrALAZINE HCL 25 MG TABLET PO SCH (12:48)
[2025-01-08] MEDS ORDERED: diphenhydrAMINE HCL 50 MG CAPSULE PO PRN (15:00)
[2025-01-08 16:00] VITALS: BP 129/72; TEMP 98.7; O2SAT 97
[2025-01-08] MEDS: LORAZEPAM 1 MG TABLET PO PRN (16:29)
[2025-01-08] MEDS: METFORMIN 500 MG TABLET PO SCH (17:00)
[2025-01-08] MEDS: APIXABAN 5 MG TABLET PO SCH (17:00)
[2025-01-08 20:00] VITALS: BP 152/61; TEMP 97.5; O2SAT 96
[2025-01-08 20:46] VITALS: BP 152/61; TEMP 97.5; O2SAT 96
[2025-01-08] MEDS: QUETIAPINE FUMARATE 100 MG TABLET PO SCH (21:42)
[2025-01-08] MEDS: ZOLPIDEM TARTRATE 5 MG TABLET PO PRN (21:49)
[2025-01-08] MEDS: ATORVASTATIN 10 MG TABLET PO SCH (21:55)
[2025-01-09 08:00] VITALS: BP 111/47; TEMP 98; O2SAT 96
[2025-01-09] MEDS: DIGOXIN 0.125 MG TABLET PO SCH (08:20)
[2025-01-09] MEDS: PANTOPRAZOLE 40 MG TABLET.DR PO SCH (08:21)
[2025-01-09] MEDS: DILTIAZEM HCL CD 120 MG PO SCH (08:21)
[2025-01-09 16:00] VITALS: BP 122/48; TEMP 97.7; O2SAT 96
[2025-01-09 20:28] VITALS: BP 123/62; TEMP 97.7; O2SAT 100
[2025-01-09] MEDS: QUETIAPINE FUMARATE 100 MG TABLET PO SCH (21:14)
[2025-01-09] MEDS: hydrOXYzine PAMOATE 25 MG CAPSULE PO PRN (21:46)
[2025-01-09] MEDS: hydrOXYzine PAMOATE 25 MG CAPSULE PO STA (23:13)
[2025-01-10 08:00] VITALS: BP 141/62; TEMP 98; O2SAT 100
[2025-01-10 16:00] VITALS: BP 114/58; TEMP 97.8; O2SAT 96
[2025-01-10 21:16] VITALS: BP 113/57; TEMP 97.9; O2SAT 96
[2025-01-10] MEDS: hydrOXYzine PAMOATE 25 MG CAPSULE PO PRN (21:23)
[2025-01-11 08:00] VITALS: BP 95/68; TEMP 97.8; O2SAT 96
[2025-01-11 16:00] VITALS: BP 97/64; TEMP 98.3; O2SAT 97
[2025-01-11] MEDS ORDERED: INSULIN REGULAR, HUMAN 100 UNIT/ML 3 ML VIAL SQ PRN (18:30)
[2025-01-11] MEDS ORDERED: DEXTROSE 50%-WATER 50 ML DISP.SYRIN IV PRN (18:30)
[2025-01-11 21:01] VITALS: BP 120/56; TEMP 98.3; O2SAT 96
[2025-01-11] MEDS: BLOOD SUGAR DIAGNOSTIC 1 EACH STRIP IN SCH (21:54)
[2025-01-12 08:00] VITALS: BP 100/52; TEMP 98.4; O2SAT 96
[2025-01-12 16:54] VITALS: BP 100/55; TEMP 98.2; O2SAT 97
[2025-01-12 20:28] VITALS: BP 116/48; TEMP 98.2; O2SAT 97
[2025-01-13 08:00] VITALS: BP 127/53; TEMP 98.6; O2SAT 98
[2025-01-13 20:11] VITALS: BP 141/63; TEMP 98.5; O2SAT 97
[2025-01-14 08:00] VITALS: BP 115/57; TEMP 97.8; O2SAT 96
[2025-01-14 08:59] VITALS: BP 115/57
== END 2025-01-14 12:00 | DRG 885 ==
LOC: ER 18:51 → GPS 23:31
PROVIDERS: ADMIT Psychiatry & Neurology Psychiatry; ATTEND Internal Medicine
DX: F25.0 Schizoaffective disorder, bipolar type (principal); Z59.00 Homelessness unspecified; R45.851 Suicidal ideations; N39.0 Urinary tract infection, site not specified; D68.59 Other primary thrombophilia; I10 Essential (primary) hypertension; F29 Unspecified psychosis not due to a substance or known physiological condition; K21.9 Gastro-esophageal reflux disease without esophagitis; E11.9 Type 2 diabetes mellitus without complications; I48.91 Unspecified atrial fibrillation; Z79.01 Long term (current) use of anticoagulants; Z79.899 Other long term (current) drug therapy; Z88.0 Allergy status to penicillin; Z88.1 Allergy status to other antibiotic agents; Z88.8 Allergy status to other drugs, medicaments and biological substances; Z79.84 Long term (current) use of oral hypoglycemic drugs; J44.9 Chronic obstructive pulmonary disease, unspecified; F41.9 Anxiety disorder, unspecified; E78.5 Hyperlipidemia, unspecified
CPT/HCPCS: 36415; 80048-TC; 80076-TC; 81001; 82962-TC; 85025-TC; 87081-TC; G0480; J1815; Q0177